=== PATIENT | male | born 1970 | race African-American/Black ===

== ENCOUNTER 2019-06-30 23:37 | Emergency (ER) | payer SELFPAY ==
[~2019-06-30] VITALS: Ht 182.9 cm; Wt 119.8 kg
[2019-07-01] MEDS ORDERED: SODIUM CHLORIDE 0.9% 1,000 ML IV ONE (00:52)
[2019-07-01 01:39] LABS: HEMATOCRIT. 38.4 % (42.0-52.0); MEAN CORPUSCULAR HEMOGLOBIN 31.2 pg (28.0-32.0); MEAN CORPUSCULAR VOLUME 92.2 fL (80.0-94.0); MEAN PLATELET VOLUME 9.2 fl (7.4-10.4); PLATELET 232 x1000/uL (130-400); RED BLOOD CELL COUNT 4.16 mill/uL (4.7-6.1); RED CELL DISTRIBUTION WIDTH 16.3 % (11.6-14.6)
[2019-07-01 01:40] LABS: CHLORIDE 109 mEq/L (98-107)
[2019-07-01 01:41] LABS: PROTHROMBIN TIME 10.7 sec (9.6-11.0)
[2019-07-01 02:07] LABS: PLATELET ESTIMATE NORMAL
[2019-07-01] MEDS ORDERED: MORPHINE SULFATE 4 MG/ML CPJ (NOT FOR IM USE) IV ONE (02:15)
[2019-07-01 09:11] VITALS: BP 144/112
[2019-07-01] MEDS ORDERED: ACETAMINOPHEN 325MG TABLET PO ONE (09:15)
== END 2019-07-01 09:35 | disposition home or self-care (01) ==
LOC: ER 23:37
DX: R22.43 Localized swelling, mass and lump, lower limb, bilateral (principal); I11.0 Hypertensive heart disease with heart failure; I50.9 Heart failure, unspecified; G40.909 Epilepsy, unspecified, not intractable, without status epilepticus; E78.00 Pure hypercholesterolemia, unspecified; J45.909 Unspecified asthma, uncomplicated; F15.10 Other stimulant abuse, uncomplicated; F17.210 Nicotine dependence, cigarettes, uncomplicated; F20.9 Schizophrenia, unspecified; Z86.73 Personal history of transient ischemic attack (TIA), and cerebral infarction without residual deficits; Z88.6 Allergy status to analgesic agent; Z98.890 Other specified postprocedural states; Z71.6 Tobacco abuse counseling
CPT/HCPCS: 36415; 78582; 80053; 85025; 85610; 93005; 93970; 93971; 99284; 99406; A9540; A9558; J7030; Z7610